=== PATIENT | female | born 1985 | race Caucasian/White ===

== ENCOUNTER 2023-11-07 15:52 | Emergency (ER) | payer OTHER | END 2023-11-07 16:20 | disposition home or self-care (01) | LOC: MADERS 15:52 | DX: B02.9 Zoster without complications (principal); I10 Essential (primary) hypertension; F17.210 Nicotine dependence, cigarettes, uncomplicated; Z79.899 Other long term (current) drug therapy | CPT/HCPCS: 99282 ==

== ENCOUNTER 2024-04-16 15:14 | Emergency (ER) | payer OTHER ==
[2024-04-16] MEDS ORDERED: Dexamethasone 10 MG/ML VIAL ONE (16:45)
[2024-04-16] MEDS ORDERED: Ketorolac Tromethamine 30 MG (1 mL) VIAL ONE (16:45)
[2024-04-16 18:16] LABS: Bilirubin Negative (Negative); Blood, Urine Trace (Negative); Glucose, Urine (Dipstick) 100 mg/dL (Negative); Ketone, Urine Trace mg/dL (Negative); Leukocyte Small (Negative); Nitrite Positive (Negative); Protein, Urine (Dipstick) 100 mg/dL (Neg-Trace); Urobilinogen 0.2 mg/dL (Less than 2); pH, Urine 6.5 (5.0-9.0)
[2024-04-16 18:21] LABS: Clarity Cloudy (Clear)
[2024-04-16 18:22] LABS: Pregnancy Test - Urine (BHCG) Negative (Negative); Pregu Control Background? CLEAR/WHITE (CLR/WHITE); Pregu Control Bar Appear? YES (CONTROL BAR); Specific Gravity 1.028 (1.002-1.036); Specific Gravity, Urine 1.028 (1.002-1.036)
[2024-04-16 18:25] LABS: Bacteria/HPF 4+ HPF (None Seen); CAUTI Indications for Culture Pelvic or flank pain; RBC/HPF 0-3 HPF (0-3)
[2024-04-16 18:26] LABS: Urine Culture Reflex Yes Yes
[2024-04-16] MEDS ORDERED: Lidocaine 1% PF 5 ML VIAL ONE (19:11)
[2024-04-16] MEDS ORDERED: cefTRIAXone (ROCEPHIN) 1 GM VIAL ONE (19:11)
== END 2024-04-16 20:05 | disposition home or self-care (01) ==
LOC: MADERS 15:14
DX: N39.0 Urinary tract infection, site not specified (principal); M25.552 Pain in left hip; M54.42 Lumbago with sciatica, left side; F17.210 Nicotine dependence, cigarettes, uncomplicated; I10 Essential (primary) hypertension
CPT/HCPCS: 72131; 72192; 81001; 81025; 87077; 87086; 96372; J0696; J1100; J1885